=== PATIENT | female | born 1960 | race Caucasian/White ===

== ENCOUNTER 2024-04-19 08:56 | Emergency (ER) | payer MEDICARE, OTHER ==
[~2024-04-19] VITALS: Ht 167.6 cm; Wt 131.1 kg
[~2024-04-19 08:56] MED LIST: ALPR0.25 PO; DIPH25TA62 PO; FAMO20TA80 PO; LISI10TA29 PO; OMEP40CA PO; PANT40TA49 PO; RANI150T8 PO; SERT25TA5 PO; TRAM50TA2 PO
[2024-04-19] MEDS ORDERED: FAMOTIDINE/PF INJ 20 MG/2 ML VIAL IV ONE (09:14)
[2024-04-19] MEDS ORDERED: EPINEPHRINE (1:1000) 1 MG/ML AMPUL ONE (09:14)
[2024-04-19] MEDS ORDERED: methylPREDNISolone SOD SUCC 125 MG/2ML VIAL ONE (09:14)
[2024-04-19] MEDS: IV NS 0.9% 1,000 ML BAG IV ONE (09:22)
[2024-04-19] MEDS: methylPREDNISolone SOD SUCC 125 MG/2ML VIAL IV ONE (09:23)
[2024-04-19] MEDS: FAMOTIDINE/PF INJ 20 MG/2 ML VIAL IV ONE (09:23)
[2024-04-19] MEDS: EPINEPHRINE (1:1000) 1 MG/ML AMPUL SUBCUT ONE (09:23)
[2024-04-19 09:52] LABS: BASOPHILS # (AUTO) 0.1 K/uL (0.0-0.2); BASOPHILS % (AUTO) 0.6 % (0.0-2.0); EOSINOPHILS # (AUTO) 0.2 K/uL (0.0-0.7); EOSINOPHILS % (AUTO) 2.2 % (0.0-6.0); HEMATOCRIT 44 % (33-45); HEMOGLOBIN 14.9 g/dL (11.5-14.8); LYMPHOCYTES # (AUTO) 4.7 K/uL (0.8-4.8); LYMPHOCYTES % (AUTO) 50.1 % (20.0-44.0); MEAN CORPUSCULAR HEMOGLOBIN 32 PG (26.0-33.0); MEAN CORPUSCULAR HGB CONC 34 g/dl (31.0-36.0); MEAN CORPUSCULAR VOLUME 95 fL (82-100); MONOCYTES # (AUTO) 0.9 K/uL (0.1-1.30); MONOCYTES % (AUTO) 9.5 % (2.0-12.0); NEUTROPHILS # (AUTO) 3.5 K/uL (1.8-8.9); NEUTROPHILS % (AUTO) 37.6 % (43.0-81.0); PLATELET COUNT (AUTO) 253 K/uL (150-450); RED CELL DISTRIBUTION WIDTH 13.6 % (11.5-15.0); WHITE BLOOD COUNT (AUTO) 9.4 K/uL (4.3-11.0)
[2024-04-19 09:59] LABS: CALCIUM, SERUM 8.8 mg/dL (8.5-10.1); CREATININE 0.8 mg/dL (0.6-1.3); POTASSIUM 3.8 mmol/L (3.5-5.1)
[2024-04-19] MEDS ORDERED: CT SWABBABLE VALVE TRANS SET 1 EA INFUS.SET MC ONE (10:29)
[2024-04-19] MEDS ORDERED: IOHEXOL-300 100 ML VIAL IV ONE (10:29)
[2024-04-19] MEDS ORDERED: IV NS 0.9% 250 ML IV ONE (10:29)
[2024-04-19] MEDS ORDERED: FAMO-131 PO (12:16)
[2024-04-19] MEDS ORDERED: PRED20TA PO (12:16)
[2024-04-19] MEDS ORDERED: DIPH25CA83 PO (12:16)
[2024-04-19] MEDS ORDERED: AMOX-430 PO (12:16)
[2024-04-19 12:21] VITALS: BP 145/77; TEMP 98.7; O2SAT 100
== END 2024-04-19 12:22 | disposition home or self-care (01) ==
LOC: ER 09:24
DX: T78.3XXA Angioneurotic edema, initial encounter (principal); K04.7 Periapical abscess without sinus; M54.2 Cervicalgia; I10 Essential (primary) hypertension; F17.200 Nicotine dependence, unspecified, uncomplicated; Z90.49 Acquired absence of other specified parts of digestive tract; Z98.890 Other specified postprocedural states; Z79.899 Other long term (current) drug therapy; Y92.89 Other specified places as the place of occurrence of the external cause
CPT/HCPCS: 99285; 96374; 70491; 96361; 96375; 85025; 80048; 36415; 96372; J0171; J3490; J7030; J7050; Q9967; J2919